=== PATIENT | female | born 1960 | race Asian ===

== ENCOUNTER → 2016-12-06 | Outpatient (CLI) | payer BC ==
[~2016-12-06] MED LIST: ATROPINE SULFATE 1 MG/ML VIAL IVP ONE; DOBUTamine HCL/D5W 500 MG/250 ML IV BAG [STRESS LAB ONLY] IV ONE
[2016-12-06 09:10] VITALS: BP_SYST 138; BP_SYST 151; BP_DIAS 62; BP_DIAS 66
[2016-12-06 11:59] VITALS: BP 109/57
== END | disposition home or self-care (01) ==
LOC: CARDMN 10:00
PROVIDERS: ATTEND Internal Medicine Cardiovascular Disease
DX: R07.89 Other chest pain (principal)
CPT/HCPCS: 93017; 93306; 93350; J0461; J1250

== ENCOUNTER 2017-02-02 06:13 | Day surgery (SDC) | payer BC ==
[~2017-02-02] VITALS: Ht 154.9 cm; Wt 63.6 kg
[~2017-02-02 06:13] MED LIST changes: -ATROPINE SULFATE 1 MG/ML VIAL IVP ONE; -DOBUTamine HCL/D5W 500 MG/250 ML IV BAG [STRESS LAB ONLY] IV ONE; +HYD25 PO; +HYDR200T4 PO; +LINA5TAB PO; +MONT10TA21 PO; +PRED20 PO; +SULF1TAB42 PO; +VITAD1000 PO
[2017-02-02] MEDS ORDERED: BENZOCAINE 20% 50 MCG/SPRAY 57 GM TP ONE (06:14)
[2017-02-02] MEDS ORDERED: ALBUTEROL SULFATE 2.5 MG/0.5 ML NEB SOLUTION NEB ONE (06:14)
[2017-02-02] MEDS ORDERED: LIDOCAINE HCL 4% 50 ML SOLUTION TP ONE (06:14)
[2017-02-02] MEDS ORDERED: LIDOCAINE HCL 2% 5 ML JELLY TP ONE (06:14)
[2017-02-02] MEDS ORDERED: SODIUM CHLORIDE 0.9% 1,000 ML IV ONE ×2 (06:25→08:00)
[2017-02-02 07:11] LABS: GLUCOSE,POINT OF CARE 206 MG/DL (70-110)
[2017-02-02] MEDS ORDERED: MIDAZOLAM HCL 2 MG/2 ML VIAL ONE (07:48)
[2017-02-02] MEDS ORDERED: FentaNYL CITRATE-PF 100 MCG/2 ML VIAL ONE (07:48)
[2017-02-02] MEDS ORDERED: MethylPREDNISolone SOD SUCC 125 MG/2 ML VIAL IVP ONE (08:45)
[2017-02-02] MEDS ORDERED: OXYGEN THERAPY IH SCH (20:00)
== END 2017-02-02 10:05 | disposition home or self-care (01) ==
LOC: SURGERY 06:13
PROVIDERS: ATTEND Internal Medicine Critical Care Medicine
DX: J38.4 Edema of larynx (principal); B37.0 Candidal stomatitis; M54.9 Dorsalgia, unspecified; Z98.890 Other specified postprocedural states; Z87.891 Personal history of nicotine dependence; Z79.899 Other long term (current) drug therapy
CPT/HCPCS: 31623; 31624; 71010; 82962; 87015 ×2; 87070; 87077; 87101; 87147; 87205; 87220; 94640; J2250; J2930; J3010; J7030; 88108; 88312